=== PATIENT | female | born 1940 | race African-American/Black ===

== ENCOUNTER 2023-10-20 15:00 | Inpatient (IN) | payer MEDICARE, MEDICAID ==
[~2023-10-20 15:00] MED LIST: Iopamidol 370 76% 100 ML VIAL ONE
[2023-10-20 16:07] LABS: #Eosinphils 0.1 10x3/uL (0.0-0.5); #Monocytes 0.4 10x3/uL (0.0-1.1); #Neutrophils 2.6 10x3/uL (1.5-8.4); %Basophils 0.5 % (0.0-2.0); %Eosinophils 1.4 % (0.0-6.0); %Monocytes 8.1 % (0.0-10.0); %Neutrophils 59.8 % (40.0-75.0); Hematocrit 42.6 % (34.9-44.5); Hemoglobin 14.5 g/dL (12.0-15.5); Mean Corpuscular Hemoglobin 31.3 pg (27.0-33.0); Mean Platelet Volume 9.2 fl (7.4-10.4); Platelet Count 261 10x3/uL (150-450); RBC Distribution Width 13.9 % (11.5-14.5); Red Blood Cell (RBC) Count 4.63 10x6/uL (3.90-5.03); White Blood Cell (WBC) Count 4.3 10x3/uL (3.5-10.5)
[2023-10-20 16:10] LABS: ALT (SGPT) 22 U/L (8-55); AST (SGOT) 41 U/L (5-34); Albumin 3.8 g/dL (3.4-4.8); Alkaline Phosphatase 90 U/L (40-110); Anion Gap 12 mmol/L (10-20); BUN (Urea Nitrogen) 24 mg/dL (9.8-20.1); Bilirubin, Total 0.6 mg/dL (0.2-1.2); Calc. Creatinine Clearance 0 mL/min (70-130); Calcium 9.2 mg/dL (7.8-10.44); Carbon Dioxide 26 mmol/L (23-31); Chloride 103 mmol/L (98-107); Estimated GFR 48; Globulin 2.6 g/dL (2.4-3.5); Glucose 124 mg/dL (83-110); Lipase 14 U/L (8-78); Magnesium 2.2 mg/dL (1.6-2.6); Potassium 4.4 mmol/L (3.5-5.1); Protein, Total 6.4 g/dL (5.8-8.1); Sodium 137 mmol/L (136-145)
[2023-10-20 16:16] LABS: Troponin I 0.014 ng/mL (< 0.028)
[2023-10-20 16:48] LABS: SARS-CoV-2 NAA Rapid Test Not Detected (NotDetected)
[2023-10-20] MEDS ORDERED: Furosemide 40 MG (4 mL) VIAL ONE (17:50)
[2023-10-20] MEDS ORDERED: Ondansetron PF 4 MG/2 ML Vial IVP PRN (19:19)
[2023-10-20] MEDS ORDERED: Acetaminophen 650 MG Suppository PR PRN (19:19)
[2023-10-20] MEDS ORDERED: Acetaminophen 325 MG TAB PO PRN (19:19)
[2023-10-20] MEDS ORDERED: Ondansetron ODT 4 MG TAB PO PRN (19:19)
[2023-10-20 20:38] VITALS: BMI 26.1
[2023-10-20] MEDS ORDERED: Flecainide 50 MG TAB PO SCH (21:30)
[2023-10-20] MEDS ORDERED: Ranolazine 500 MG ER.TAB PO SCH (21:30)
[2023-10-20] MEDS ORDERED: Atorvastatin Calcium 10 MG TAB PO SCH (21:30)
[2023-10-20] MEDS ORDERED: Apixaban 5 MG TAB PO SCH (21:30)
[2023-10-20] MEDS ORDERED: Mirtazapine 15 MG TAB PO SCH (21:30)
[2023-10-21 05:44] LABS: #Monocytes 0.5 10x3/uL (0.0-1.1); %Basophils 0.4 % (0.0-2.0); %Eosinophils 0.7 % (0.0-6.0); %Lymphocytes 34.2 % (18.0-47.0); %Monocytes 8.4 % (0.0-10.0); %Neutrophils 56.1 % (40.0-75.0); ALT (SGPT) 23 U/L (8-55); AST (SGOT) 42 U/L (5-34); Albumin 3.8 g/dL (3.4-4.8); Alkaline Phosphatase 89 U/L (40-110); Anion Gap 14 mmol/L (10-20); BUN (Urea Nitrogen) 22 mg/dL (9.8-20.1); Bilirubin, Total 0.8 mg/dL (0.2-1.2); Calc. Creatinine Clearance 51 mL/min (70-130); Calcium 9.8 mg/dL (7.8-10.44); Carbon Dioxide 26 mmol/L (23-31); Chloride 102 mmol/L (98-107); Estimated GFR 52; Globulin 3.2 g/dL (2.4-3.5); Glucose 100 mg/dL (83-110); Hematocrit 46.9 % (34.9-44.5); Magnesium 2.2 mg/dL (1.6-2.6); Mean Corpuscular HGB CONC 34.1 g/dL (32.0-36.0); Mean Corpuscular Hemoglobin 31.6 pg (27.0-33.0); Mean Corpuscular Volume 92.7 fl (81.6-98.3); Mean Platelet Volume 9.5 fl (7.4-10.4); Platelet Count 266 10x3/uL (150-450); Potassium 4.1 mmol/L (3.5-5.1); RBC Distribution Width 13.9 % (11.5-14.5); Red Blood Cell (RBC) Count 5.06 10x6/uL (3.90-5.03); Sodium 138 mmol/L (136-145); White Blood Cell (WBC) Count 5.4 10x3/uL (3.5-10.5)
[2023-10-21] MEDS ORDERED: Apixaban 5 MG TAB PO SCH (09:00)
[2023-10-21] MEDS: Ranolazine 500 MG ER.TAB PO SCH ×2 (10:15→21:30)
[2023-10-21] MEDS: Apixaban 2.5 MG TAB PO SCH ×2 (10:16→21:30)
[2023-10-21] MEDS: Flecainide 50 MG TAB PO SCH ×3 (10:16→21:30)
[2023-10-21] MEDS: Furosemide 40 MG (4 mL) VIAL SLOW IVP SCH (10:16)
[2023-10-21] MEDS ORDERED: Atorvastatin Calcium 10 MG TAB PO SCH (21:00)
[2023-10-21] MEDS ORDERED: Mirtazapine 15 MG TAB PO SCH (21:00)
[2023-10-22 05:37] LABS: Anion Gap 13 mmol/L (10-20); BUN (Urea Nitrogen) 27 mg/dL (9.8-20.1); Calc. Creatinine Clearance 47 mL/min (70-130); Calcium 9.4 mg/dL (7.8-10.44); Carbon Dioxide 29 mmol/L (23-31); Chloride 99 mmol/L (98-107); Estimated GFR 46; Glucose 100 mg/dL (83-110); Magnesium 2.1 mg/dL (1.6-2.6); Sodium 137 mmol/L (136-145)
[2023-10-22] MEDS: Furosemide 40 MG (4 mL) VIAL SLOW IVP SCH (09:04)
[2023-10-22] MEDS: Apixaban 2.5 MG TAB PO SCH (09:05)
[2023-10-22] MEDS: Ranolazine 500 MG ER.TAB PO SCH (09:05)
[2023-10-22] MEDS: Flecainide 50 MG TAB PO SCH ×2 (09:05→16:59)
[2023-10-22 12:18] VITALS: TEMP 97.5
[2023-10-22 15:47] VITALS: BP 113/53
== END 2023-10-22 17:50 | disposition home or self-care (01) | DRG 291 ==
LOC: CSHERS 15:00 → CSHTELE 20:34
PROVIDERS: ADMIT Family Medicine; ATTEND Family Medicine
DX: I13.0 Hypertensive heart and chronic kidney disease with heart failure and stage 1 through stage 4 chronic kidney disease, or unspecified chronic kidney disease (principal); I50.33 Acute on chronic diastolic (congestive) heart failure; J98.11 Atelectasis; M84.48XA Pathological fracture, other site, initial encounter for fracture; I44.0 Atrioventricular block, first degree; E78.2 Mixed hyperlipidemia; I48.0 Paroxysmal atrial fibrillation; I25.118 Atherosclerotic heart disease of native coronary artery with other forms of angina pectoris; N18.31 Chronic kidney disease, stage 3a; Z86.711 Personal history of pulmonary embolism; Z95.0 Presence of cardiac pacemaker; Z90.710 Acquired absence of both cervix and uterus; Z98.890 Other specified postprocedural states; Z88.0 Allergy status to penicillin; Z11.52 Encounter for screening for COVID-19
CPT/HCPCS: 36415; 71045; 71275; 80048; 80053; 83690; 83735; 83880; 84484; 85025; 93005; 94760; 96374; J1940; Q9967

== ENCOUNTER 2023-10-29 10:21 | Emergency (ER) | payer MEDICARE, MEDICAID ==
[2023-10-29 11:31] LABS: #Eosinphils 0.1 10x3/uL (0.0-0.5); #Monocytes 0.4 10x3/uL (0.0-1.1); %Basophils 0.4 % (0.0-2.0); %Eosinophils 1.2 % (0.0-6.0); %Lymphocytes 29.4 % (18.0-47.0); %Monocytes 7.5 % (0.0-10.0); %Neutrophils 61.3 % (40.0-75.0); Hematocrit 44.6 % (34.9-44.5); Hemoglobin 15.5 g/dL (12.0-15.5); Mean Corpuscular HGB CONC 34.8 g/dL (32.0-36.0); Mean Corpuscular Hemoglobin 31.6 pg (27.0-33.0); Mean Platelet Volume 9.5 fl (7.4-10.4); Platelet Count 235 10x3/uL (150-450); RBC Distribution Width 13.9 % (11.5-14.5); White Blood Cell (WBC) Count 4.9 10x3/uL (3.5-10.5)
[2023-10-29 11:40] LABS: ALT (SGPT) 20 U/L (8-55); AST (SGOT) 46 U/L (5-34); Albumin 3.8 g/dL (3.4-4.8); Alkaline Phosphatase 100 U/L (40-110); Anion Gap 16 mmol/L (10-20); BUN (Urea Nitrogen) 21 mg/dL (9.8-20.1); Bilirubin, Total 0.8 mg/dL (0.2-1.2); Calc. Creatinine Clearance 0 mL/min (70-130); Calcium 9.3 mg/dL (7.8-10.44); Carbon Dioxide 26 mmol/L (23-31); Chloride 101 mmol/L (98-107); Estimated GFR 47; Globulin 2.7 g/dL (2.4-3.5); Glucose 132 mg/dL (83-110); Protein, Total 6.5 g/dL (5.8-8.1); Sodium 139 mmol/L (136-145)
[2023-10-29 11:46] LABS: Troponin I 0.044 ng/mL (< 0.028)
[2023-10-29] MEDS ORDERED: Furosemide 40 MG (4 mL) VIAL ONE (13:23)
[2023-10-29 13:58] LABS: Troponin I 0.031 ng/mL (< 0.028)
[2023-10-29 14:06] LABS: Bilirubin Neg (Negative); Blood, Urine 25 (Negative); Clarity Clear (Clear); Glucose, Urine (Dipstick) Normal (Negative); Ketone, Urine Negative (Negative); Leukocyte 500 (Negative); Nitrite Negative (Negative); Protein, Urine (Dipstick) Negative (Neg-Trace); Urobilinogen Normal mg/dL (Less than 2)
[2023-10-29 14:35] LABS: CAUTI Indications for Culture Pelvic or flank pain; RBC/HPF 0-3 HPF (0-3)
[2023-10-29 14:37] LABS: Bacteria/HPF 1+ HPF (None Seen); Renal Epithelial 0-3 HPF (None Seen); Squamous Epithelial 0-3 HPF (0-3); Transitional Epithelial 0-3 HPF (None Seen)
[2023-10-29 14:42] LABS: Urine Culture Reflex No No
== END 2023-10-29 14:42 | disposition home or self-care (01) ==
LOC: CSHERS 10:21
DX: I11.0 Hypertensive heart disease with heart failure (principal); I50.9 Heart failure, unspecified; N39.0 Urinary tract infection, site not specified; E78.5 Hyperlipidemia, unspecified; I26.99 Other pulmonary embolism without acute cor pulmonale; Z55.6 Problems related to health literacy
CPT/HCPCS: 36415; 71045; 80053; 81001; 83880; 84484; 85025; 87086; 93005; 96374; J1940

== ENCOUNTER 2023-11-10 05:38 | Inpatient (IN) | payer MEDICARE, MEDICAID ==
[2023-11-10] MEDS ORDERED: Furosemide 40 MG (4 mL) VIAL ONE ×2 (05:58→14:09)
[2023-11-10] MEDS ORDERED: Nitroglycerin 2% Ointment 1 INCH/1 GM Packet ONE (05:58)
[2023-11-10 07:09] LABS: #Monocytes 0.4 10x3/uL (0.0-1.1); #Neutrophils 3.8 10x3/uL (1.5-8.4); %Basophils 0.4 % (0.0-2.0); %Eosinophils 0.4 % (0.0-6.0); %Lymphocytes 22.2 % (18.0-47.0); %Monocytes 6.5 % (0.0-10.0); %Neutrophils 70.1 % (40.0-75.0); Hematocrit 46.6 % (34.9-44.5); Hemoglobin 15.6 g/dL (12.0-15.5); Mean Corpuscular HGB CONC 33.5 g/dL (32.0-36.0); Mean Corpuscular Hemoglobin 31.3 pg (27.0-33.0); Mean Corpuscular Volume 93.6 fl (81.6-98.3); Mean Platelet Volume 9.7 fl (7.4-10.4); Platelet Count 248 10x3/uL (150-450); RBC Distribution Width 14.1 % (11.5-14.5); Red Blood Cell (RBC) Count 4.98 10x6/uL (3.90-5.03); White Blood Cell (WBC) Count 5.4 10x3/uL (3.5-10.5)
[2023-11-10 07:34] LABS: ALT (SGPT) 23 U/L (8-55); AST (SGOT) 47 U/L (5-34); Albumin 3.8 g/dL (3.4-4.8); Alkaline Phosphatase 102 U/L (40-110); Anion Gap 17 mmol/L (10-20); BUN (Urea Nitrogen) 18 mg/dL (9.8-20.1); Bilirubin, Total 0.9 mg/dL (0.2-1.2); Calc. Creatinine Clearance 0 mL/min (70-130); Calcium 9.5 mg/dL (7.8-10.44); Carbon Dioxide 28 mmol/L (23-31); Chloride 95 mmol/L (98-107); Estimated GFR 49; Glucose 125 mg/dL (83-110); Potassium 4.4 mmol/L (3.5-5.1); Protein, Total 6.8 g/dL (5.8-8.1); Sodium 136 mmol/L (136-145); Troponin I 0.029 ng/mL (< 0.028)
[2023-11-10] MEDS ORDERED: methylPREDNISolone Sod Succ/PF 125 MG/2 ML VIAL ONE (07:45)
[2023-11-10] MEDS ORDERED: Acetaminophen 325 MG TAB PO PRN (08:40)
[2023-11-10] MEDS ORDERED: Ipratropium/Albuterol 3 ML NEB ONE ×2 (09:50→17:50)
[2023-11-10 10:17] LABS: Magnesium 2.1 mg/dL (1.6-2.6)
[2023-11-10 10:19] LABS: Troponin I 0.034 ng/mL (< 0.028)
[2023-11-10] MEDS ORDERED: Apixaban 5 MG TAB ONE ×2 (11:00→21:38)
[2023-11-10] MEDS ORDERED: Apixaban 2.5 MG TAB ONE (11:04)
[2023-11-10] MEDS: Apixaban 2.5 MG TAB PO SCH (11:05)
[2023-11-10] MEDS: Furosemide 40 MG (4 mL) VIAL SLOW IVP SCH (14:21)
[2023-11-10] MEDS: Ipratropium/Albuterol 3 ML NEB NEB PRN (17:54)
[2023-11-10] MEDS ORDERED: Clindamycin 150 MG CAP ONE (21:38)
[2023-11-10] MEDS: Clindamycin 150 MG CAP PO SCH (21:43)
[2023-11-11] MEDS: Famotidine 20 MG TAB PO SCH ×2 (00:43→09:13)
[2023-11-11 03:53] LABS: #Monocytes 0.4 10x3/uL (0.0-1.1); #Neutrophils 4.8 10x3/uL (1.5-8.4); %Basophils 0.2 % (0.0-2.0); %Lymphocytes 19.6 % (18.0-47.0); %Monocytes 6.4 % (0.0-10.0); %Neutrophils 73.6 % (40.0-75.0); Hematocrit 43.9 % (34.9-44.5); Hemoglobin 14.7 g/dL (12.0-15.5); Mean Corpuscular HGB CONC 33.5 g/dL (32.0-36.0); Mean Corpuscular Hemoglobin 31.4 pg (27.0-33.0); Mean Corpuscular Volume 93.8 fl (81.6-98.3); Platelet Count 230 10x3/uL (150-450); RBC Distribution Width 14.1 % (11.5-14.5); Red Blood Cell (RBC) Count 4.68 10x6/uL (3.90-5.03); White Blood Cell (WBC) Count 6.5 10x3/uL (3.5-10.5)
[2023-11-11 04:25] LABS: ALT (SGPT) 19 U/L (8-55); AST (SGOT) 40 U/L (5-34); Albumin 3.4 g/dL (3.4-4.8); Alkaline Phosphatase 88 U/L (40-110); Anion Gap 16 mmol/L (10-20); BUN (Urea Nitrogen) 21 mg/dL (9.8-20.1); Bilirubin, Total 0.6 mg/dL (0.2-1.2); Calc. Creatinine Clearance 0 mL/min (70-130); Calcium 9.2 mg/dL (7.8-10.44); Carbon Dioxide 28 mmol/L (23-31); Cardiac Risk 2.1 (Less than 4.5); Chloride 94 mmol/L (98-107); Cholesterol 118 mg/dl (< 200 Desired); Estimated GFR 44; Globulin 2.4 g/dL (2.4-3.5); Glucose 106 mg/dL (83-110); HDL Cholesterol 55 mg/dL (>60 Neg Risk); LDL Cholesterol, Calculated 52 mg/dL; Potassium 4.1 mmol/L (3.5-5.1); Protein, Total 5.8 g/dL (5.8-8.1); Sodium 134 mmol/L (136-145); Triglycerides 57 mg/dL (Less than 150)
[2023-11-11] MEDS: Flecainide 50 MG TAB PO SCH (14:57)
[2023-11-11] MEDS ORDERED: Flecainide 50 MG TAB PO SCH (15:00)
[2023-11-11] MEDS: Senokot S 8.6-50 MG TAB PO PRN (19:12)
[2023-11-11] MEDS: Mirtazapine 15 MG TAB PO SCH (21:23)
[2023-11-11] MEDS: Atorvastatin Calcium 10 MG TAB PO SCH (21:25)
[2023-11-11] MEDS: Ranolazine ER 500 MG TAB PO SCH (21:25)
[2023-11-12] MEDS: Bisacodyl 10 MG SUPP PR SCH (01:41)
[2023-11-12 03:45] LABS: #Eosinphils 0.1 10x3/uL (0.0-0.5); #Monocytes 0.4 10x3/uL (0.0-1.1); #Neutrophils 3.9 10x3/uL (1.5-8.4); %Basophils 0.3 % (0.0-2.0); %Eosinophils 0.8 % (0.0-6.0); %Monocytes 5.9 % (0.0-10.0); %Neutrophils 60.5 % (40.0-75.0); Hematocrit 46.1 % (34.9-44.5); Hemoglobin 15.2 g/dL (12.0-15.5); Mean Corpuscular Volume 94.1 fl (81.6-98.3); Mean Platelet Volume 9.7 fl (7.4-10.4); Platelet Count 250 10x3/uL (150-450); RBC Distribution Width 14.2 % (11.5-14.5); White Blood Cell (WBC) Count 6.4 10x3/uL (3.5-10.5)
[2023-11-12 04:12] VITALS: BMI 24.3
[2023-11-12 04:23] LABS: Anion Gap 16 mmol/L (10-20); BUN (Urea Nitrogen) 27 mg/dL (9.8-20.1); Calc. Creatinine Clearance 41 mL/min (70-130); Calcium 9.2 mg/dL (7.8-10.44); Carbon Dioxide 29 mmol/L (23-31); Chloride 94 mmol/L (98-107); Estimated GFR 43; Glucose 117 mg/dL (83-110); Potassium 3.5 mmol/L (3.5-5.1); Sodium 135 mmol/L (136-145)
[2023-11-12] MEDS: Fleet Saline Enema 133 ML BOT PR SCH (09:30)
[2023-11-12] MEDS ORDERED: Polyethylene Glycol 3350 17 GM Packet PO PRN (13:32)
[2023-11-12] MEDS: Polyethylene Glycol 3350 17 GM Packet PO SCH (14:39)
[2023-11-13 03:54] LABS: #Eosinphils 0.1 10x3/uL (0.0-0.5); #Monocytes 0.5 10x3/uL (0.0-1.1); #Neutrophils 3.5 10x3/uL (1.5-8.4); %Basophils 0.5 % (0.0-2.0); %Lymphocytes 31.7 % (18.0-47.0); %Monocytes 7.7 % (0.0-10.0); %Neutrophils 58.9 % (40.0-75.0); Hemoglobin 15.3 g/dL (12.0-15.5); Mean Corpuscular HGB CONC 34.8 g/dL (32.0-36.0); Mean Corpuscular Hemoglobin 32.3 pg (27.0-33.0); Mean Corpuscular Volume 92.8 fl (81.6-98.3); Mean Platelet Volume 9.8 fl (7.4-10.4); Platelet Count 238 10x3/uL (150-450); RBC Distribution Width 14.2 % (11.5-14.5); Red Blood Cell (RBC) Count 4.74 10x6/uL (3.90-5.03)
[2023-11-13 04:16] LABS: Anion Gap 16 mmol/L (10-20); BUN (Urea Nitrogen) 27 mg/dL (9.8-20.1); Calc. Creatinine Clearance 42 mL/min (70-130); Carbon Dioxide 28 mmol/L (23-31); Chloride 92 mmol/L (98-107); Estimated GFR 44; Glucose 91 mg/dL (83-110); Potassium 3.3 mmol/L (3.5-5.1); Sodium 133 mmol/L (136-145)
[2023-11-13 09:13] VITALS: TEMP 98.4
[2023-11-13 09:30] VITALS: BP 121/73
[2023-11-13] MEDS: Polyethylene Glycol 3350 17 GM Packet PO SCH (10:30)
[2023-11-13] MEDS: Potassium Chloride 20 MEQ TAB PO SCH (10:41)
== END 2023-11-13 12:55 | DRG 291 ==
LOC: CSHERS 05:38 → CSHERHOLD 08:41 → CSHTELE 11-11 00:16
PROVIDERS: ADMIT Hospitalist; ATTEND Nurse Practitioner Acute Care
DX: I13.0 Hypertensive heart and chronic kidney disease with heart failure and stage 1 through stage 4 chronic kidney disease, or unspecified chronic kidney disease (principal); I50.43 Acute on chronic combined systolic (congestive) and diastolic (congestive) heart failure; J96.21 Acute and chronic respiratory failure with hypoxia; I48.0 Paroxysmal atrial fibrillation; K59.09 Other constipation; I25.118 Atherosclerotic heart disease of native coronary artery with other forms of angina pectoris; N18.30 Chronic kidney disease, stage 3 unspecified; Z88.0 Allergy status to penicillin; Z79.899 Other long term (current) drug therapy; Z79.2 Long term (current) use of antibiotics; Z90.12 Acquired absence of left breast and nipple; Z85.3 Personal history of malignant neoplasm of breast; Z92.21 Personal history of antineoplastic chemotherapy; E78.2 Mixed hyperlipidemia; Z92.3 Personal history of irradiation; Z98.890 Other specified postprocedural states; Z90.710 Acquired absence of both cervix and uterus; Z95.0 Presence of cardiac pacemaker; Z98.49 Cataract extraction status, unspecified eye; Z82.49 Family history of ischemic heart disease and other diseases of the circulatory system; Z80.3 Family history of malignant neoplasm of breast; Z86.711 Personal history of pulmonary embolism
CPT/HCPCS: 36415; 71045; 80048; 80053; 80061; 83735; 83880; 84443; 84484; 85025; 93005; 94640; 94760; 96374; 96375; J1940; J2930; J7620